=== PATIENT | male | born 1960 | race Hispanic/Latino ===

== ENCOUNTER 2021-04-11 10:36 | Day surgery (SDC) | payer BC ==
[2021-04-10 09:00] VITALS: BP 134/90
[~2021-04-11] VITALS: Ht 170.2 cm; Wt 77.1 kg
[2021-04-11] VITALS (16 sets, daily range): BP systolic 101–133; BP diastolic 64–86
[~2021-04-11 10:36] MED LIST: OMEG-148 PO
[2021-04-11] MEDS ORDERED: LACTATED RINGERS 1000ML 1,000 ML IV ONE (10:59)
[2021-04-11] MEDS ORDERED: LIDOCAINE PF 100MG/5ML (2%) SYRINGE 5ML ONE (11:16)
[2021-04-11] MEDS ORDERED: FENTANYL CITRATE PF 50 MCG/1 ML 2ML VIAL ONE ×2 (11:16→13:15)
[2021-04-11] MEDS ORDERED: PROPOFOL 10 MG/ML 20ML VIAL IV ONE (11:16)
[2021-04-11] MEDS ORDERED: MIDAZOLAM HCL 1 MG/ML 2ML VIAL ONE (11:16)
[2021-04-11] MEDS ORDERED: ROCURONIUM 10MG/1ML SYR 10 MG/ML ML ONE (11:16)
[2021-04-11] MEDS ORDERED: 0.9%NACL 10ML VIAL ONE (13:01)
[2021-04-11] MEDS ORDERED: PHENYLEPHRINE HCL 10 MG/ML 1ML VIAL IV ONE (13:02)
[2021-04-11] MEDS ORDERED: EPHEDRINE SULFATE 50 MG/ML AMPULE ONE (13:02)
[2021-04-11] MEDS ORDERED: CEFAZOLIN SODIUM 1 GM VIAL ONE (13:11)
[2021-04-11] MEDS ORDERED: CEFAZOLIN SODIUM 2 GM VIAL IV ONE (13:13)
[2021-04-11] MEDS ORDERED: DEXAMETHASONE SOD PHOSPHATE 4 MG/ML 1ML VIAL ONE (13:46)
[2021-04-11] MEDS ORDERED: KETOROLAC 30MG VIAL (30MG/ML) ONE (13:46)
[2021-04-11] MEDS ORDERED: ONDANSETRON 4MG INJ ONE (13:47)
== END 2021-04-11 15:38 | disposition home or self-care (01) ==
LOC: DAH 10:36
PROVIDERS: ATTEND Student in an Organized Health Care Education/Training Program
DX: D17.21 Benign lipomatous neoplasm of skin and subcutaneous tissue of right arm (principal); D17.24 Benign lipomatous neoplasm of skin and subcutaneous tissue of left leg; Z20.822 Contact with and (suspected) exposure to COVID-19; E78.5 Hyperlipidemia, unspecified; Z98.890 Other specified postprocedural states; Z79.899 Other long term (current) drug therapy
CPT/HCPCS: 23073; 27337; 87426; A4215; A4216; A4221; A4222; A4223 ×2; A4452; A4663; A5120; A6207; A6260; G0168; J0690 ×2; J1100; J1885; J2001; J2250; J2370; J2405; J2704; J3010 ×2; J3490; J7120